=== PATIENT | female | born 1975 | race Asian ===

== ENCOUNTER → 2017-03-04 | Outpatient (CLI) | payer BC ==
[~2017-03-04] MED LIST: CALC600T5 PO; CYCL-319 PO; HYDR-3498 PO; IBUP-1542 PO; PREN-39 PO
--- NOTE | 2017-03-04 17:41 | RADRPT ---
PROCEDURE: XR Chest. CLINICAL INDICATION: Cough. TECHNIQUE: Two views. Frontal and lateral. COMPARISON: No prior study is available for comparison. FINDINGS: The lungs are clear. The heart size is normal. There is no pleural effusion. There is no pneumothorax. IMPRESSION: 1. Normal chest radiograph. RPTAT: QQ .Ortiz Izquierdo MD, MD Date Time Electronically viewed and signed by .Ortiz Izquierdo MD, MD on 03/04/2017 17:41 .R/
== END | disposition home or self-care (01) ==
LOC: RAD 12:46
PROVIDERS: ATTEND Internal Medicine
DX: J18.9 Pneumonia, unspecified organism (principal)
CPT/HCPCS: 71020